=== PATIENT | female | born 1940 | race Caucasian/White ===

== ENCOUNTER → 2023-11-06 | Outpatient (CLI) | payer OTHER ==
[~2023-11-06] MED LIST: ALBU90OI61 INH; ASCO500 PO; Armour Thyroid15 MG PO; CHOL10002 PO; CODLIVC PO; COPPER2 MG PO; DIAZ2 PO; DIPH25 PO; ENOX40I SC; ERGO50000 PO; ESTR2 PO; Estradiol0.5 MG PO; FISH1000 PO; Galzin50 MG PO; IBUP400 PO; INOSITOL; Inositol500 MG PO; LEVSOD100 PO; Lutein 15 MG S1 EACH PO; MAGOXI400 PO; MONT10T PO; NALT50 PO; NIAC500 PO; Non-Pseudo Sinu10 MG PO; OXYC5 PO; PROGESTERONE; PROGESTERONE M100 GM; St. John's Wor150 MG; THYR60 PO; VITAMIN D5000 UNIT PO; Ventolin Soln3 ML INH; Vitamin C1000 M1 PO; ZYRTEC10 M1 PO
== END ==
LOC: LAB SHORT 17:30 → LAB 17:30
DX: J34.89 Other specified disorders of nose and nasal sinuses (principal)
CPT/HCPCS: 87070; 87077; 87147; 87186